=== PATIENT | male | born 1945 | race Caucasian/White ===

== ENCOUNTER 2021-07-04 04:27 | Day surgery (SDCO) | payer MEDICARE, OTHER ==
[~2021-07-04] VITALS: Ht 175.3 cm; Wt 90.8 kg
[~2021-07-04 04:27] MED LIST: AUGMENTIN 875-1 EACH PO; BENTYL10 MG PO; HYDROCODON-ACE1 EAC4 PO; PERCOCET 5-3251 EACH PO; PRILOSEC20 MG PO; SYNTHROID50 MCG PO; ZOFRAN8 MG PO; ZYRTEC10 M3 PO
[2021-07-04 05:02] LABS: BASOPHIL 0.3 % (0-2); EOSINOPHIL 0.2 % (0-7); HCT 44.8 % (42.0-52.0); LYMPHOCYTE 8.8 % (15-48); MCH 33.1 pg (25.0-31.0); MCHC 35.7 g/dL (32.0-36.0); MCV 92.8 fL (78.0-100.0); MONOCYTE 10.3 % (0-12); MPV 9.5 fL (6.0-9.5); NRBC 0; PLT 187 K/uL (150-400); RBC 4.83 M/uL (4.70-6.00); RDW 13.1 % (11.5-14.0); WBC 12.4 K/uL (4.0-10.5)
[2021-07-04 05:23] LABS: ALBUMIN 3.4 g/dL (3.4-5.0); BILIRUBIN - TOTAL 1.2 mg/dL (0.2-1.0); BUN/CREAT RATIO (CALC) 10.4 RATIO; CREATININE 0.77 mg/dL (0.67-1.17); GLOBULIN (CALCULATION) 3.8 g/dL; POTASSIUM 3.7 mmol/L (3.5-5.1); TOTAL PROTEIN 7.2 g/dL (6.4-8.2)
[2021-07-04 09:23] LABS: CHOLESTEROL 251 mg/dL (<200); HDL 51 mg/dL (40-60); LDL - DIRECT 170 mg/dL (<100); TRIGLYCERIDES 76 mg/dL (<150)
[2021-07-05 07:15] LABS: BASOPHIL 0.3 % (0-2); EOSINOPHIL 0.7 % (0-7); HCT 41.5 % (42.0-52.0); HGB 14.2 g/dl (13.2-18.0); LYMPHOCYTE 9.9 % (15-48); MCH 32.8 pg (25.0-31.0); MCHC 34.2 g/dL (32.0-36.0); MCV 95.8 fL (78.0-100.0); MONOCYTE 11.9 % (0-12); MPV 9.9 fL (6.0-9.5); NEUTROPHIL 76.8 % (41-80); NRBC 0; PLT 165 K/uL (150-400); RBC 4.33 M/uL (4.70-6.00); RDW 13.1 % (11.5-14.0); WBC 11.3 K/uL (4.0-10.5)
[2021-07-05 07:30] LABS: ALBUMIN 2.6 g/dL (3.4-5.0); BILIRUBIN - TOTAL 0.6 mg/dL (0.2-1.0); BUN/CREAT RATIO (CALC) 9.7 RATIO; CREATININE 0.62 mg/dL (0.67-1.17); GLOBULIN (CALCULATION) 3.5 g/dL; MAGNESIUM 1.9 mg/dL (1.8-2.4); POTASSIUM 3.9 mmol/L (3.5-5.1); TOTAL PROTEIN 6.1 g/dL (6.4-8.2)
--- NOTE | 2021-07-05 09:49 | NUR ---
07/05/21 Mr. Celestin lives at home with his spouse. He is independent in the home and community. No discharge planning needs are anticipated.
[2021-07-06 07:04] LABS: BASOPHIL 0.4 % (0-2); HCT 40.8 % (42.0-52.0); LYMPHOCYTE 9.8 % (15-48); MCH 32.6 pg (25.0-31.0); MCHC 34.3 g/dL (32.0-36.0); MCV 95.1 fL (78.0-100.0); MONOCYTE 12.8 % (0-12); MPV 9.5 fL (6.0-9.5); NEUTROPHIL 74.6 % (41-80); NRBC 0; PLT 173 K/uL (150-400); RBC 4.29 M/uL (4.70-6.00); RDW 13.2 % (11.5-14.0); WBC 8.1 K/uL (4.0-10.5)
[2021-07-06 07:21] LABS: ALBUMIN 2.6 g/dL (3.4-5.0); BILIRUBIN - TOTAL 0.6 mg/dL (0.2-1.0); CREATININE 0.6 mg/dL (0.67-1.17); GLOBULIN (CALCULATION) 3.5 g/dL; POTASSIUM 4.1 mmol/L (3.5-5.1); TOTAL PROTEIN 6.1 g/dL (6.4-8.2)
[2021-07-06] MEDS ORDERED: ONDANSETRON ODT4 MG PO (11:19)
== END 2021-07-06 12:12 | disposition home or self-care (01) ==
LOC: FER 04:27 → FMS 11:49
PROVIDERS: Emergency Medicine; ADMIT Internal Medicine
DX: K85.80 Other acute pancreatitis without necrosis or infection (principal); K21.9 Gastro-esophageal reflux disease without esophagitis; J30.9 Allergic rhinitis, unspecified; N40.0 Benign prostatic hyperplasia without lower urinary tract symptoms; K40.90 Unilateral inguinal hernia, without obstruction or gangrene, not specified as recurrent; N28.1 Cyst of kidney, acquired; I25.10 Atherosclerotic heart disease of native coronary artery without angina pectoris; Z79.899 Other long term (current) drug therapy; Z88.2 Allergy status to sulfonamides; Z88.5 Allergy status to narcotic agent; Z20.822 Contact with and (suspected) exposure to COVID-19
CPT/HCPCS: 36415; 71046; 74183; 80053; 80061; 82150; 83605; 83690; 83735; 84484; 85025; 93005; 94010; G0378; J1170; J1650; J2270; J2405; J3480; J7030; Q9967; U0002